=== PATIENT | male | born 1980 | race Hispanic/Latino ===

== ENCOUNTER 2018-04-19 21:29 | Emergency (ER) | payer BC, OTHER ==
[2018-04-19 21:39] VITALS: O2SAT 98
[2018-04-19 23:13] LABS: URINE BILIRUBIN NEGATIVE (NEGATIVE); URINE BLOOD NEGATIVE (NEGATIVE); URINE CLARITY SLIGHTY-CLOUDY (Clear); URINE COLOR STRAW (YELLOW); URINE GLUCOSE (UA) NEG (NEGATIVE); URINE LEUKOCYTE ESTERASE NEG Leu/uL (Negative); URINE PROTEIN NEGATIVE (NEGATIVE); URINE UROBILINOGEN 0.2-1.0 mg/dL (0.2-1.0)
--- NOTE | 2018-04-20 00:34 | ED PDOC ---
HPI: Male Pain Time Seen by Provider: 04/19/18 21:52 Chief Complaint (Nursing): GI Problem Chief Complaint (Provider): Scrotal Pain History Per: Patient History/Exam Limitations: no limitations Onset/Duration Of Symptoms: Days (Patient presents indicating that he has signficant scrotal pain after riding an exercise bicycle and deisres evaluation. Pt denies NVD or other trauam) Current Symptoms Are (Timing): Still Present Past Medical History Reviewed: Historical Data, Nursing Documentation, Vital Signs Vital Signs: Last Vital Signs Temp 98.7 F 04/19/18 21:37 Pulse 77 04/19/18 21:37 Resp 16 04/19/18 21:37 BP 154/84 H 04/19/18 21:37 Pulse Ox 98 04/19/18 21:37 - Medical History PMH: Asthma Other PMH: testicular torsion - Family History Family History: States: Unknown Family Hx - Home Medications Home Medications: Ambulatory Orders Medication Instructions Recorded Amoxicillin 500 mg PO BID #14 cap 09/25/14 Antipyrine/Benzocaine [Auralgan 1 drop OT BID #10 daisy 09/25/14 Otic Daisy] Carbamide Peroxide [Debrox Ear 2 - 3 drop OD BID #1 bottle 09/25/14 Drops] Guaifenesin [Mucinex] 1,200 mg PO BID #14 ter 09/25/14 - Allergies Allergies/Adverse Reactions: Allergies Allergy/AdvReac Type Severity Reaction Status Date / Time shellfish derived Allergy RASH Verified 04/19/18 21:39 Review of Systems ROS Statement: Except As Marked, All Systems Reviewed And Found Negative Genitourinary Male: Positive for: Scrotal Pain Physical Exam - Reviewed Nursing Documentation Reviewed: Yes Vital Signs Reviewed: Yes - Physical Exam Appears: Positive for: Well, Non-toxic, No Acute Distress. Negative for: Uncomfortable Head Exam: Positive for: ATRAUMATIC, NORMAL INSPECTION Skin: Positive for: Normal Color, Warm, Dry. Negative for: Diaphoresis, Pallor, Rash Eye Exam: Positive for: Normal appearance, PERRL. Negative for: Nystagmus, Periorbital swelling, Periorbital tenderness Neck: Positive for: Normal Cardiovascular/Chest: Positive for: Regular Rate, Rhythm Pulses-Carotid (L): 2+ Pulses-Carotid (R): 2+ Pulses-Radial (L): 2+ Pulses-Radial (R): 2+ Gastrointestinal/Abdominal: Positive for: Normal Exam, Bowel Sounds, Soft. Negative for: Tenderness Male Genital Exam: Positive for: normal genitalia, scrotum tenderness (R), testicular tenderness (R) - Laboratory Results Lab Results: Urine Color Straw (YELLOW) 04/19/18 23:00 Urine Clarity Slighty-cloudy (Clear) 04/19/18 23:00 Urine pH 6.0 (5.0-8.0) 04/19/18 23:00 Ur Specific [place] 1.009 (1.003-1.030) 04/19/18 23:00 Urine Protein Negative mg/dL (NEGATIVE) 04/19/18 23:00 Urine Glucose (UA) Neg mg/dL (NEGATIVE) 04/19/18 23:00 Urine Ketones Negative mg/dL (NEGATIVE) 04/19/18 23:00 Urine Blood Negative (NEGATIVE) 04/19/18 23:00 Urine Nitrate Negative (NEGATIVE) 04/19/18 23:00 Urine Bilirubin Negative (NEGATIVE) 04/19/18 23:00 Urine Urobilinogen 0.2-1.0 mg/dL (0.2-1.0) 04/19/18 23:00 Ur Leukocyte Esterase Neg Karly/uL (Negative) 04/19/18 23:00 Urine RBC (Auto) 2 /hpf (0-3) 04/19/18 23:00 Urine Microscopic WBC < 1 /hpf (0-5) 04/19/18 23:00 - ECG O2 Sat by Pulse Oximetry: 98 Medical Decision Making Medical Decision Makin:22 Testes Duplex US Findings: Right orchiectomy. Unremarkable left testicle measuring 4.7x2.3x3.8 cm. Small left varicocele is noted. Left epididymal head cyst measuring 0.8 cm. Impression: No evidence of acute pathology. Disposition - Clinical Impression Clinical Impression: Varicocele present on ultrasound of scrotum, Epididymal cyst - Disposition Referrals: Jm Braun MD [Medical Doctor] - Disposition Time: 01:51 Condition: STABLE Instructions: Varicocele, Hydrocele/Varicocele (DC) Forms: [email or web address] (German)
[2018-04-20 01:51] VITALS: BP 125/70; PULSE 74; RESP 18; TEMP 98.3
--- NOTE | 2018-04-20 10:31 | US ---
Date of service: 04/19/2018 HISTORY: testicular pain TECHNIQUE: Realtime sonography through the scrotum with color and doppler flow. COMPARISON: None Available. FINDINGS: RIGHT TESTICLE: Prior right orchiectomy. RIGHT EPIDIDYMIS: Epididymal head measures cm. Grossly unremarkable appearance with normal flow. LEFT TESTICLE: Measures 3.8 x 2.3 x 4.7 cm. Normal echotexture and flow. LEFT EPIDIDYMIS: Epididymal head measures 1.1 x 1.2 x 1.1 cm. Incidental finding(s): Simple cyst left epididymis 0.8 x 0.4 x 0.75 cm. HYDROCELE: None VARICOCELE: Small, unilateral left varicocele accentuated by fell salvage. OTHER FINDINGS: None. IMPRESSION: Negative study for epididymitis, orchitis or torsion. Small left epididymal cyst 8 mm. Concordant findings (preliminary report) provided by [facility].
== END 2018-04-20 01:51 | disposition home or self-care (01) ==
LOC: H.ER 21:29
DX: J45.909 Unspecified asthma, uncomplicated (principal)